=== PATIENT | female | born 1945 | race Caucasian/White ===

== ENCOUNTER 2018-01-11 20:49 | Emergency (ER) | payer MEDICARE ==
[2018-01-11] MEDS ORDERED: Ketorolac Tromethamine 30 MG/ML VIAL ONE (21:46)
--- NOTE | 2018-01-12 07:39 | RAD ---
THREE VIEWS OF THE LEFT ANKLE 01/11/18 COMPARISON: None. HISTORY: Left ankle pain after stepping in a gopher hole and twisting left ankle. FINDINGS: Three views of the left ankle shows no evidence of acute fracture or dislocation. An ossific fragment adjacent to the medial malleolus likely represents sequela from remote trauma. Mild diffuse soft tis sylvia swelling is seen. IMPRESSION: No evidence of acute osseous abnormality. POS: [facility]
== END 2018-01-11 22:23 | disposition home or self-care (01) ==
LOC: ERS 20:49
DX: S93.402A Sprain of unspecified ligament of left ankle, initial encounter (principal); E03.9 Hypothyroidism, unspecified; J45.909 Unspecified asthma, uncomplicated; F41.9 Anxiety disorder, unspecified; F32.9 Major depressive disorder, single episode, unspecified; X50.1XXA Overexertion from prolonged static or awkward postures, initial encounter; Y93.02 Activity, running
CPT/HCPCS: 96372; J1885

== ENCOUNTER 2018-10-11 05:52 | Outpatient (CLI) | payer MEDICARE ==
--- NOTE | 2018-10-11 14:00 | RAD ---
Exam: Chest 2 views: HISTORY: Preoperative evaluation FINDINGS: Minimal increased linear and interstitial markings noted bilaterally. Questionable faint nodular dens ity which may just represent summation artifact of the anterior first rib and posterior sixth rib. Heart size is within normal limits. The lungs are clear. IMPRESSION: Minimal linear chronic appearing changes within both lungs with some biapical pleural thickening. Questionable nodular density overlying the right upper chest possibly a summation artifact. Atherosclerosis of the aorta. Depending on concern, consider follow-up chest CT scan for further assessment. No confluent pneumonia or overt edema or significant pleural effusion.
[2018-10-11 14:54] LABS: #Basophils 0.1 thou/uL (0.0-0.2); #Eosinphils 0.4 thou/uL (0.0-0.7); #Lymphocytes 3.2 thou/uL (1.20-3.40); #Monocytes 0.6 thou/uL (0.11-0.59); #Neutrophils 3.5 thou/uL (1.40-6.50); %Basophils 1.6 % (0.0-1.0); %Eosinophils 5.7 % (0.0-10.0); %Lymphocytes 40.8 % (21.0-51.0); %Monocytes 7.4 % (0.0-10.0); %Neutrophils 44.5 % (42.0-75.0); Hemoglobin 14.3 g/dL (12.0-16.0); Mean Corpuscular HGB CONC 32.5 g/dL (32.0-36.0); Mean Corpuscular Hemoglobin 29.4 pg (27.0-31.0); Mean Corpuscular Volume 90.5 fL (78.0-98.0); Mean Platelet Volume 7.9 fL (7.4-10.4); Platelet Count 273 thou/uL (130-400); Red Blood Cell (RBC) Count 4.86 mill/uL (4.20-5.40); White Blood Cell (WBC) Count 7.8 thou/uL (4.8-10.8)
[2018-10-11 15:01] LABS: INR-International Normal Ratio 0.9; Prothrombin Time 12.3 SEC (12.0-14.7)
[2018-10-11 15:06] LABS: Anion Gap 14 mmol/L (10-20); BUN (Urea Nitrogen) 18 mg/dL (9.8-20.1); Calc. Creatinine Clearance 0 mL/min (70-130); Calcium 10.1 mg/dL (7.8-10.44); Carbon Dioxide 29 mmol/L (23-31); Chloride 102 mmol/L (98-107); Estimated GFR-MDRD 75; Glucose 71 mg/dL (83-110); Potassium 4.5 mmol/L (3.5-5.1); Sodium 140 mmol/L (136-145)
[2018-10-11 16:38] LABS: Bacteria/HPF None Seen HPF (None Seen); RBC/HPF 0-3 HPF (0-3); Squamous Epithelial 0-3 HPF (0-3); WBC/HPF None Seen HPF (0-3)
[2018-10-11 16:59] LABS: Bilirubin Negative (Negative); Blood, Urine Trace (Negative); Glucose, Urine (Dipstick) Negative (Negative); Leukocyte Trace (Negative); Nitrite Negative (Negative); Protein, Urine (Dipstick) Negative (Neg-Trace); Urobilinogen 0.2 mg/dL (Less than 2)
[2018-10-11 17:01] LABS: Clarity Clear (Clear)
== END 2018-10-11 05:53 | disposition home or self-care (01) ==
LOC: LABBT 05:52
PROVIDERS: ATTEND Orthopaedic Surgery
DX: Z01.818 Encounter for other preprocedural examination (principal); M17.11 Unilateral primary osteoarthritis, right knee; J92.9 Pleural plaque without asbestos; I70.0 Atherosclerosis of aorta
CPT/HCPCS: 71046; 80048; 81001; 85025; 85610; 87081

== ENCOUNTER 2018-10-25 11:30 | Emergency (ER) | payer MEDICARE ==
[2018-10-25] MEDS ORDERED: Morphine 4 MG/ML VIAL ONE (13:28)
[2018-10-25] MEDS ORDERED: Ondansetron PF 4 MG/2 ML Vial ONE (13:28)
[2018-10-25 13:52] LABS: #Basophils 0.1 thou/uL (0.0-0.2); #Eosinphils 0.6 thou/uL (0.0-0.7); #Lymphocytes 2.2 thou/uL (1.20-3.40); #Monocytes 0.6 thou/uL (0.11-0.59); #Neutrophils 4.9 thou/uL (1.40-6.50); %Basophils 0.6 % (0.0-1.0); %Eosinophils 7.3 % (0.0-10.0); %Lymphocytes 26.1 % (21.0-51.0); %Monocytes 7.5 % (0.0-10.0); %Neutrophils 58.4 % (42.0-75.0); Hemoglobin 11.8 g/dL (12.0-16.0); Mean Corpuscular HGB CONC 33.1 g/dL (32.0-36.0); Mean Corpuscular Hemoglobin 30.2 pg (27.0-31.0); Mean Corpuscular Volume 91.3 fL (78.0-98.0); Mean Platelet Volume 6.9 fL (7.4-10.4); Platelet Count 417 thou/uL (130-400); RBC Distribution Width 13.5 % (11.5-14.5); White Blood Cell (WBC) Count 8.5 thou/uL (4.8-10.8)
[2018-10-25 13:57] LABS: Prothrombin Time 13.4 SEC (12.0-14.7)
--- NOTE | 2018-10-25 14:03 | ULT ---
DOPPLER VENOUS ULTRASOUND OF THE RIGHT LOWER EXTREMITY: 10/25/18 CPT: 72780 ICD-10-PCS: B54D HISTORY: History of right total knee replacement, 10/16/18 with right lower extremity edema and pain. TECHNIQUE: Color flow Doppler, spectral waveform analysis of pulsed Doppler, and willoughby-scale imaging with chris kelley and augmentation, were used to evaluate the right common femoral, femoral, popliteal, posterior tibial, and superficial femoral, veins; and the proximal portions of the profunda femoral and greater saphenous, veins. FINDINGS: There is normal compression, flow and augmentation seen within the deep venous structures of the righ t lower extremity. IMPRESSION: No evidence of DVT in the right lower extremity. POS: OFF
[2018-10-25 14:13] LABS: ALT (SGPT) 18 U/L (8-55); AST (SGOT) 22 U/L (5-34); Albumin 3.7 g/dL (3.4-4.8); Alkaline Phosphatase 76 U/L (40-150); Anion Gap 10 mmol/L (10-20); BUN (Urea Nitrogen) 16 mg/dL (9.8-20.1); Bilirubin, Total 0.4 mg/dL (0.2-1.2); Calc. Creatinine Clearance 0 mL/min (70-130); Calcium 9.6 mg/dL (7.8-10.44); Carbon Dioxide 30 mmol/L (23-31); Chloride 103 mmol/L (98-107); Estimated GFR-MDRD 77; Globulin 2.9 g/dL (2.4-3.5); Glucose 96 mg/dL (83-110); Potassium 4.7 mmol/L (3.5-5.1); Protein, Total 6.6 g/dL (6.0-8.3); Sodium 138 mmol/L (136-145)
--- NOTE | 2018-10-25 20:28 | CON ---
DATE OF CONSULTATION: 10/25/2018 ADMITTING DIAGNOSIS: Right total knee arthroplasty status post with right lower extremity swelling and radicular pain. HISTORY: Ms. Talley is a 73-year-old female, status post total knee arthroplasty last week on Monday. The patient was currently in skilled rehab, had swelling in her calves as well as radicular symptoms in her leg. She presented to the ER for further workup for possible blood clots. The patient otherwise is resting comfortably in bed. PHYSICAL EXAMINATION: GENERAL: Alert, oriented, in no acute distress. EXTREMITIES: Right lower extremity has no significant erythema. No drainage. Well sealed surgical scar. She has warmth to the calves and leg. No diffuse swelling of the right lower extremity. She will wiggle and extend her toes. She does have radicular symptoms positive with extension of the toes. IMPRESSION: 1. Status post right total knee. 2. Radicular pain, right leg. ASSESSMENT AND PLAN: The patient had a workup for deep venous thrombosis, which was negative. The ultrasound was negative. She will be sent home with gabapentin 300 mg t.i.d. Followup was given. She will start vitamin C 500 mg to decrease the risk of potential neuropathic pain consistent with complex regional pain syndrome. She will follow up with me as scheduled. She will go back to longterm until her discharge. Job ID: [id number]
== END 2018-10-25 16:27 ==
LOC: ERS 11:30
DX: M25.561 Pain in right knee (principal); E03.9 Hypothyroidism, unspecified; M79.7 Fibromyalgia; F41.9 Anxiety disorder, unspecified; F32.9 Major depressive disorder, single episode, unspecified
CPT/HCPCS: 36415; 80053; 85025; 85610; 96374; 96375; J2270; J2405

== ENCOUNTER 2018-11-12 11:19 | Emergency (ER) | payer MEDICARE ==
[2018-11-12 11:59] LABS: Bacteria/HPF None Seen HPF (None Seen); Bilirubin Negative (Negative); Blood, Urine Negative (Negative); Clarity Clear (Clear); Glucose, Urine (Dipstick) Normal (Negative); Leukocyte 25 Leu/uL (Negative); Nitrite Negative (Negative); Protein, Urine (Dipstick) 20 mg/dL (Neg-Trace); RBC/HPF 0-3 HPF (0-3); Transitional Epithelial 0-3 HPF (None Seen); Urobilinogen Normal mg/dL (Less than 2)
== END 2018-11-12 13:48 | disposition home or self-care (01) ==
LOC: ERS 11:19
DX: S50.812A Abrasion of left forearm, initial encounter (principal); S50.811A Abrasion of right forearm, initial encounter; S20.319A Abrasion of unspecified front wall of thorax, initial encounter; R21 Rash and other nonspecific skin eruption; F41.9 Anxiety disorder, unspecified; J45.909 Unspecified asthma, uncomplicated; F32.9 Major depressive disorder, single episode, unspecified; E03.9 Hypothyroidism, unspecified; X58.XXXA Exposure to other specified factors, initial encounter
CPT/HCPCS: 81003; 81015; 99283

== ENCOUNTER 2021-01-04 12:13 | Outpatient (CLI) | payer MEDICARE ==
[2021-01-04 23:44] LABS: SARS-CoV-2 PCR by NAA Not Detected (NotDetected)
== END 2021-01-04 12:14 | disposition home or self-care (01) ==
LOC: LABBT 12:13
PROVIDERS: ATTEND Neurological Surgery
DX: Z01.812 Encounter for preprocedural laboratory examination (principal); Z20.822 Contact with and (suspected) exposure to COVID-19
CPT/HCPCS: U0003; U0005

== ENCOUNTER 2021-01-18 10:16 | Outpatient (CLI) | payer MEDICARE ==
[2021-01-18 20:27] LABS: SARS-CoV-2 PCR by NAA Not Detected (NotDetected)
== END 2021-01-18 10:17 | disposition home or self-care (01) ==
LOC: LABBT 10:16
PROVIDERS: ATTEND Neurological Surgery
DX: Z01.812 Encounter for preprocedural laboratory examination (principal); M54.12 Radiculopathy, cervical region; Z20.822 Contact with and (suspected) exposure to COVID-19
CPT/HCPCS: U0003; U0005

== ENCOUNTER 2021-01-22 10:59 | Outpatient (CLI) | payer MEDICARE ==
[2021-01-21 11:14] VITALS: BMI 29.0
[2021-01-22] MEDS ORDERED: Ondansetron PF 4 MG/2 ML Vial ONE (13:15)
[2021-01-22] MEDS ORDERED: Lidocaine 1% PF 5 ML VIAL ONE (13:15)
[2021-01-22] MEDS ORDERED: Dexamethasone 20 MG/5 ML VIAL ONE (13:15)
[2021-01-22] MEDS ORDERED: PROPOFOL 200 MG/20 ML VIAL ONE (13:15)
== END 2021-01-22 15:40 | disposition home or self-care (01) ==
LOC: SDC/OP 10:59
PROVIDERS: ATTEND Neurological Surgery
DX: M50.10 Cervical disc disorder with radiculopathy, unspecified cervical region (principal); M48.02 Spinal stenosis, cervical region
CPT/HCPCS: 72141; J1100; J2405; J2704

== ENCOUNTER 2023-10-11 11:10 | Emergency (ER) | payer MEDICARE, OTHER ==
[2023-10-11] MEDS ORDERED: Ketorolac Tromethamine 30 MG (1 mL) VIAL ONE (12:53)
== END 2023-10-11 13:02 | disposition home or self-care (01) ==
LOC: ERS 11:10
DX: U07.1 COVID-19 (principal)
CPT/HCPCS: 87081; 87430; 96372; 99282; J1885

== ENCOUNTER 2024-02-28 19:19 | Emergency (ER) | payer MEDICARE, OTHER ==
[2024-02-28] MEDS ORDERED: Morphine 2 MG/ML VIAL ONE (19:36)
== END 2024-02-28 21:14 | disposition home or self-care (01) ==
LOC: ERS 19:19
DX: S93.401A Sprain of unspecified ligament of right ankle, initial encounter (principal); S00.432A Contusion of left ear, initial encounter; E03.9 Hypothyroidism, unspecified; X50.0XXA Overexertion from strenuous movement or load, initial encounter; Z79.899 Other long term (current) drug therapy
CPT/HCPCS: 70450; 72125; 72170; 73552; 73610; J2272; 96374